=== PATIENT | female | born 1970 | race Caucasian/White ===

== ENCOUNTER 2023-11-05 14:10 | Emergency (ER) | payer OTHER, SELFPAY ==
--- NOTE | ~2023-11-05 | XR_ITS ---
EXAMINATION: XR knee LT 3V DATE: 11/05/2023 14:47 INDICATION: Anterior left knee pain post fall TECHNIQUE: Anteroposterior, 2 oblique, sunrise and crosstable lateral views of the left knee were obt ained COMPARISON: None. FINDINGS: Alignment is normal. No fracture. Joint spaces appear normal on nonweightbearing imaging. No joint e ffusion/layering lipohemarthrosis. Mild prepatellar soft tissue swelling with subcutaneous edema. IMPRESSION: 1. No left knee joint effusion or acute osseous abnormality. Reviewed, dictated and finalized at location A.
[2023-11-05 14:20] VITALS: BP 151/57; PULSE 88; RESP 14; TEMP 35.9; O2SAT 97
--- NOTE | 2023-11-05 14:31 | ED.LOWEXIN ---
HPI - Extremity Injury (Lower) General Chief Complaint: Extremity Injury, Lower Stated Complaint: Left knee injury Time Seen by Provider: 11/05/23 14:38 Source: patient, RN notes reviewed and old records reviewed Mode of arrival: ambulatory (with crutches) Limitations: no limitations History of Present Illness HPI Narrative: 53 year old female who presents to [facility] care with complaints of fall yesterday onto a baby gait with pain to the anterior and lateral aspect of her eft knee with some swelling noted. Patient has 2cm avulsion ana of wound to anterior knee which is starting to heal with no redness discharge or signs of infection. Patient reports that she has increase pain to her eft knee with weight bearing and certain movements. Patient wearing knee wrap from home and crutches on arrival to clinic. Patient reports that she has been taking Ibuprofen for her discomfort. MD complaint: knee injury Onset (ago): day(s) (day 2) Injury: Left: knee Type of Injury: blunt Severity scale (1-10): 6 Exacerbating factors: weight bearing and movement Treatments prior to arrival: NSAIDS and other (knee wrap from home and crutches) Related Data Home Medications Medication Instructions Recorded Confirmed linagliptin 5 mg tablet (Tradjenta) 5 mg PO DAILY 11/05/23 11/05/23 valacyclovir 500 mg tablet 500 mg PO DAILY 11/05/23 11/05/23 Allergies Allergy/AdvReac Type Severity Reaction Status Date / Time amoxicillin Allergy Unknown RASH Verified 11/05/23 14:32 Review of Systems Review of Systems: CONSTITUTIONAL: Denies fever, chills, or sweats. CARDIOVASCULAR: Denies chest pain, palpitations, or edema. RESPIRATORY: Denies cough or dyspnea. SKIN: Denies rash or itching. Denies laceration or abrasions MUSCULOSKELETAL: Reports pain to anterior and lateral left knee from fall with direct blunt force onto baby gait NEUROLOGIC: Denies numbness, or weakness. All systems reviewed & are unremarkable except as noted in HPI and below PMFSH Past Medical History Medical History Diabetes patient reports borderline GERD (gastroesophageal reflux disease) Surgical History Surgical History H/O tubal ligation History of endometrial ablation Social History Social History (Updated 11/07/23 @ 09:04 by Linda Quintero NP) Smoking packs per day: 0.5 Smoking cigarettes per day: 10.0 Years smoked: 27 Smoking pack-years: 13.50 Smoking status: Current every day smoker Tobacco type: cigarettes Alcohol intake: current Alcohol use details: rare social Substance use type: does not use Gender identity (if verbalized by the patient): Female Comments At time of signature, agree with nursing past medical, surgical, social and family history. There is no relevant family history pertinent to the presenting complaint Exam Narrative: GENERAL: Well-appearing, well-nourished, and in no acute distress. HEAD: Normocephalic, atraumatic. EYES: PERRLA and EOMI. ENT: Nares clear, no rhinorrhea or epistaxis. Mucous membranes moist. NECK: Supple.no lymphadenopathy CHEST: Clear to auscultation. No respiratory distress.SAO2 97% on room air HEART: Regular rate and rhythm. No murmur heard. Normal peripheral pulses. ABDOMEN: Soft, nontender, nondistended, normal active bowel sounds. EXTREMITIES: Normal range of motion. positive edema left knee with pain to antrior an lateral aspect of knee from injury, able to bend knee but with some pain, denies any tingling or numbness to left leg or foot,strong pedal pulse. has 2cm healing avulsion type of wound to left anterior knee which is starting to heal with no signs of infection. SKIN: Warm, dry, no rash. NEURO: No focal deficits. Alert and oriented x3. Course Course Emergency Course: Patient is aware of diagnosis, understands and agrees to treatment plan. Anticipatory guidance given. Darius
== END 2023-11-05 15:24 | disposition home or self-care (01) ==
PROVIDERS: Emergency Provider Registered Nurse; PCP Family Medicine
DX: S80.02XA Contusion of left knee, initial encounter (principal); W19.XXXA Unspecified fall, initial encounter; K21.9 Gastro-esophageal reflux disease without esophagitis; F17.210 Nicotine dependence, cigarettes, uncomplicated; R73.03 Prediabetes
CPT/HCPCS: 73562; 99203; G0463